=== PATIENT | male | born 1950 | race Two or more races ===

== ENCOUNTER 2025-02-05 05:07 | Emergency (ER) | payer MEDICARE, OTHER ==
[~2025-02-05] VITALS: Ht 165.1 cm; Wt 67.1 kg
[~2025-02-05 05:07] MED LIST: [UNRECOGNIZED DRUG - REMARK]
[2025-02-05] MEDS ORDERED: MORPHINE SULFATE 4 MG/1 ML DISP.SYRIN ONE (05:31)
[2025-02-05] MEDS ORDERED: KETOROLAC TROMETHAMINE 30 MG INJ ONE (05:31)
[2025-02-05] MEDS: MORPHINE SULFATE 4 MG/1 ML DISP.SYRIN IM ONE (05:37)
[2025-02-05] MEDS: KETOROLAC TROMETHAMINE 30 MG INJ IM ONE (05:38)
[2025-02-05] MEDS ORDERED: NAPR-1009 PO ×2 (06:28→07:49)
[2025-02-05] MEDS ORDERED: HYDR-4209 PO ×2 (06:28→07:49)
[2025-02-05] MEDS ORDERED: BACL10TA PO ×2 (06:28→07:49)
[2025-02-05] MEDS ORDERED: IBUPROFEN 400 MG TABLET ONE (07:56)
[2025-02-05] MEDS: IBUPROFEN 400 MG TABLET PO ONE (07:56)
[2025-02-05 07:59] VITALS: BP 133/79; O2SAT 97
== END 2025-02-05 07:59 | disposition home or self-care (01) ==
LOC: ER 05:12
DX: M54.12 Radiculopathy, cervical region (principal); M25.512 Pain in left shoulder; R03.0 Elevated blood-pressure reading, without diagnosis of hypertension; M54.2 Cervicalgia; E78.5 Hyperlipidemia, unspecified; Z88.0 Allergy status to penicillin
CPT/HCPCS: 99285; 72125; 96372 ×2; J1885; J2270; A4606; A4663